=== PATIENT | female | born 1975 | race African-American/Black ===

== ENCOUNTER 2017-12-04 23:44 | Emergency (ER) | payer OTHER ==
[~2017-12-04] VITALS: Ht 167.6 cm; Wt 65.8 kg
[2017-12-05] MEDS ORDERED: AMOXICILLIN 50500 MG PO (00:31)
[2017-12-05] MEDS ORDERED: TAMIFLU75 MG PO (00:31)
[2017-12-05 00:45] LABS: INFLUENZA A ANTIGEN None Detected (None Detect); INFLUENZA B ANTIGEN None Detected (None Detect)
[2017-12-05 00:47] VITALS: BP 131/70
== END 2017-12-05 00:47 | disposition home or self-care (01) ==
LOC: M.ERS 23:44
PROVIDERS: Nurse Practitioner Psychiatric/Mental Health
DX: J02.0 Streptococcal pharyngitis (principal); R05 Cough; R50.9 Fever, unspecified